=== PATIENT | female | born 1960 | race Caucasian/White ===

== ENCOUNTER → 2019-09-28 10:30 | Outpatient (BNVA) | payer OTHER, SELFPAY | PROVIDERS: Family Provider Internal Medicine; PCP Internal Medicine; Visit Provider Internal Medicine | DX: E03.9 Hypothyroidism, unspecified (principal) | CPT/HCPCS: 84443 ==

== ENCOUNTER → 2020-06-13 00:01 | Outpatient (BNVA) | payer OTHER, SELFPAY | PROVIDERS: Family Provider Internal Medicine; PCP Internal Medicine; Visit Provider Obstetrics & Gynecology | DX: Z01.419 Encounter for gynecological examination (general) (routine) without abnormal findings (principal) | CPT/HCPCS: 82270 ==

== ENCOUNTER → 2020-12-27 11:00 | Outpatient (BNVA) | payer OTHER, SELFPAY | PROVIDERS: Family Provider Internal Medicine; PCP Internal Medicine; Visit Provider Nurse Practitioner Family | DX: E03.9 Hypothyroidism, unspecified (principal); R53.83 Other fatigue; E11.9 Type 2 diabetes mellitus without complications; E78.5 Hyperlipidemia, unspecified | CPT/HCPCS: 80053; 80061; 83036; 84443; 85025 ==

== ENCOUNTER → 2021-01-07 11:54 | Outpatient (BNVA) | payer OTHER, SELFPAY | PROVIDERS: Family Provider Internal Medicine; PCP Internal Medicine; Visit Provider Internal Medicine | DX: Z20.822 Contact with and (suspected) exposure to COVID-19 (principal); E03.9 Hypothyroidism, unspecified | CPT/HCPCS: 87635 ==

== ENCOUNTER 2021-01-10 08:10 | Day surgery (SDC) | payer OTHER, SELFPAY ==
[2021-01-08 13:59] VITALS: BMI 21.4
--- NOTE | 2021-01-10 08:25 | P.ANESASSM_ITS ---
Pre-Anesthetic Assessment Pre-Anesthetic Assessment: Height/Weight: Height 1.75 m Weight 65.771 kg Preop Diagnosis: Routine screening average risk Proposed Procedure: Operation Date: 01/10/21 09:30 Proposed Procedures p Colonoscopy G0121 Z12.11(Not Applicable) - Tucker Henry MD Was Beta Abdon taken within 24 hours: N/A Was Clonidine taken within 24 hours: N/A Social: Social History: No alcohol and No tobacco Exam: Pre-Anes Outpt Exam: alert, oriented x 3, clear to auscultation bilaterally and regular rate & rhythm Airway: Submandibular: WNL Cervical ROM: WNL MP: 2 Dentition: Full History/ROS: No significant history except as noted Metabolic: Metabolic: Thyroid Neuropsych: Neuropsych: Anxiety and Depression Anesthetic Plan: ASA status: 2 Anesthesia: MAC Risk of > 500 ml blood loss (7ml/kg in children): No PFSH Anesthesia PFSH: Medical History Depression History of breast cancer (~2004) Diagnosed in 2004. Treated by bilateral mastectomy. No radiation or chemotherapy. Hyperlipidemia Hypothyroidism Thoracic outlet syndrome Vasomotor symptoms due to menopause Surgical History H/O neck surgery (~2001) Treatment of ruptured disc of the cervical spine H/O partial thyroidectomy (~2007) Right sided H/O total vaginal hysterectomy (10/20/06) TVH, LSO, Anterior colporrhaphy, Retropubic suburethral sling. Performed by Dr. Matta at [facility] in [place], [place]. H/O vaginal surgery (01/14/12) Repair of vaginal laceration. Performed by Dr. Haddad at [facility] in [place], [place] History of right salpingo-oophorectomy (~1997) Performed due to ruptured ovarian cyst. S/P bilateral mastectomy (~2004) With reconstruction. Due to breast cancer. S/P cholecystectomy (~1994) S/P right knee arthroscopy (02/02/13) Performed by Dr. Vo in [place], [place] S/P tubal ligation (~1998) Vocal cord cyst (~01/2018) Removal of cyst from vocal cords. Performed in [place]. Family History Mother Hypertension Diabetes Breast cancer Father Hypertension Diabetes Heart disease Hyperlipidemia Stroke Family/Other Breast cancer Maternal aunt Grandmother Breast cancer Maternal Social History Smoking and tobacco status: never smoked Alcohol intake: current Alcohol intake frequency: 0-2 Drinks per Day Data Anesthesia Cardiac Studies: No Data to Display
[2021-01-10 08:35] VITALS: BP 114/73; PULSE 109; RESP 18; TEMP 36.2; O2SAT 99
[2021-01-10] MEDS: sodium chloride 0.9% 1,000 ML 30 ML IV (08:52)
--- NOTE | 2021-01-10 09:32 | P.HP_ITS ---
Same Day Surgery H&P Indication for Procedure/HPI DATE OF PROCEDURE: January 10, 2021 CHIEF COMPLAINT/INDICATIONFOR SURGICAL PROCEDURE: Screening PREOP DIAGNOSIS: Routine screening average risk PLANNED PROCEDRUE: Operation Date: 01/10/21 09:30 Proposed Procedures p Colonoscopy G0121 Z12.11(Not Applicable) - Tucker Henry MD Medications/Allergies* Home Medications Medication Instructions Recorded Confirmed Type aspirin 81 mg chewable tablet 81 mg PO DAILY 05/10/20 01/08/21 History multivitamin 1 cap PO DAILY 05/10/20 01/10/21 History B-complex with vitamin C [Super B 1 tab PO DAILY 01/08/21 01/10/21 History Complex + C] omega 4-tyr-jtp-fish oil [Fish Oil] 1 cap PO DAILY 01/08/21 01/10/21 History Allergies/Adverse Reactions Allergy/AdvReac Type Severity Reaction Status Date / Time Sulfa (Sulfonamide Allergy ALGY-Bliste Verified 12/27/20 10:44 Antibiotics) r Current Medications: Generic Name Dose Route Start Last Admin Trade Name Freq PRN Reason Stop Dose Admin Sodium Chloride 1,000 mls @ 30 mls/hr 01/10/21 08:30 01/10/21 08:52 Sodium Chloride 0.9% IV 30 mls/hr .Q24H RAMAN Administration Pertinent History/Comorbid Conditions* Medical History (Updated 12/27/20 @ 10:54 by Teodora Escobedo APRN) Depression History of breast cancer (~2004) Diagnosed in 2004. Treated by bilateral mastectomy. No radiation or chemotherapy. Hyperlipidemia Hypothyroidism Thoracic outlet syndrome Vasomotor symptoms due to menopause Surgical History (Updated 05/14/20 @ 17:36 by Terrence Haddad MD) H/O neck surgery (~2001) Treatment of ruptured disc of the cervical spine H/O partial thyroidectomy (~2007) Right sided H/O total vaginal hysterectomy (10/20/06) TVH, LSO, Anterior colporrhaphy, Retropubic suburethral sling. Performed by Dr. Matta at [facility] in [place], [place]. H/O vaginal surgery (01/14/12) Repair of vaginal laceration. Performed by Dr. Haddad at [facility] in [place], [place] History of right salpingo-oophorectomy (~1997) Performed due to ruptured ovarian cyst. S/P bilateral mastectomy (~2004) With reconstruction. Due to breast cancer. S/P cholecystectomy (~1994) S/P right knee arthroscopy (02/02/13) Performed by Dr. Vo in [place], [place] S/P tubal ligation (~1998) Vocal cord cyst (~01/2018) Removal of cyst from vocal cords. Performed in [place]. Family History (Updated 05/14/20 @ 17:07 by Terrence Haddad MD) Diabetes Mother Father Heart disease Father Hyperlipidemia Father Breast cancer Mother Family/Other Maternal aunt Grandmother Maternal Hypertension Mother Father Stroke Father Social History Smoking and tobacco status: never smoked Alcohol intake: current Alcohol intake frequency: 0-2 Drinks per Day Pertinent Exam Findings alert, oriented x 3, clear to auscultation bilaterally, regular rate & rhythm, operative site marked and procedure specific exam findings Recommendations Surgery/Procedure today Coding Level of Care Code Acute Quality Control Operator for Susan Tafoya
[2021-01-10 09:58] VITALS: BP 118/73; PULSE 83; RESP 16; TEMP 36.4; O2SAT 100
--- NOTE | 2021-01-10 09:59 | ANE.PACU2 ---
Inpatient post-anesthesia follow up: Vital signs: Temperature 97.5 F Pulse Rate 83 Respiratory Rate 16 Blood Pressure 118/73 Pulse Oximetry 100 Oxygen Delivery Me thod Room Air Oxygen Flow Rate Fraction of Inspir ed Oxygen
[2021-01-10 10:09] VITALS: BP 113/71; PULSE 76; RESP 18; O2SAT 99
== END 2021-01-10 10:20 | disposition home or self-care (01) ==
PROVIDERS: PCP Internal Medicine; Visit Provider Internal Medicine
PROC: 0DJD8ZZ Inspection of Lower Intestinal Tract, Via Natural or Artificial Opening Endoscopic (ICD-10-PCS; CPT 45378; principal; 2021-01-10 09:30)
DX: Z12.11 Encounter for screening for malignant neoplasm of colon (principal); F32.9 Major depressive disorder, single episode, unspecified; Z85.3 Personal history of malignant neoplasm of breast; E78.5 Hyperlipidemia, unspecified; E03.9 Hypothyroidism, unspecified; Z82.49 Family history of ischemic heart disease and other diseases of the circulatory system; Z83.3 Family history of diabetes mellitus; F41.9 Anxiety disorder, unspecified
CPT/HCPCS: 45378; 96360; J2704; J7030

== ENCOUNTER → 2022-02-27 08:58 | Outpatient (BNVA) | payer OTHER, SELFPAY | PROVIDERS: PCP Internal Medicine; Visit Provider Internal Medicine | DX: E03.9 Hypothyroidism, unspecified (principal); E78.5 Hyperlipidemia, unspecified | CPT/HCPCS: 80053; 80061; 83036; 84443 ==

== ENCOUNTER → 2022-09-15 11:26 | Outpatient (BNVA) | payer OTHER, SELFPAY | PROVIDERS: PCP Internal Medicine; Visit Provider Registered Nurse Neonatal Intensive Care | DX: R50.9 Fever, unspecified (principal); J06.9 Acute upper respiratory infection, unspecified | CPT/HCPCS: 87426 ==